=== PATIENT | male | born 1990 | race Hispanic/Latino ===

== ENCOUNTER 2023-03-25 14:34 | Emergency (ER) | payer OTHER, SELFPAY ==
[2023-03-25 14:57] VITALS: BP 122/70; PULSE 59; RESP 16; TEMP 36.3; O2SAT 99
[2023-03-25] MEDS: TETANUS,DIPHTHERIA,AC PERTUSSIS ADULT (0.5 ML) BOOSTRIX IM (15:16)
--- NOTE | 2023-03-25 15:19 | ED.WOUNDLAC ---
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 States the piece of metal fell off a hook and the corner of it struck him in the hand. He washed and took care of the wound at work, but was told by his mine supervisor to come here for a tetanus vaccine. Denies pain. Last tetanus shot was 10-15 years ago. Related Data Home Medications Medication Instructions Recorded Confirmed No Home Medications 03/25/23 03/25/23 Allergies Allergy/AdvReac Type Severity Reaction Status Date / Time No Known Allergies Allergy Verified 03/25/23 15:04 Review of Systems Review of Systems: CONSTITUTIONAL: Denies body aches, fever, chills, or sweats. EYES: Denies visual changes, redness, or discharge. ENT: Denies rhinorrhea, congestion, sore throat, or otalgia. CARDIOVASCULAR: Denies chest pain, palpitations, or edema. RESPIRATORY: Denies cough or dyspnea. GASTROINTESTINAL: Denies abdominal pain, nausea, vomiting, or diarrhea. GENITOURINARY: Denies dysuria or hematuria. SKIN: Denies rash, itching. + left hand laceration MUSCULOSKELETAL: Denies back pain, joint pain, or myalgia. NEUROLOGIC: Denies headache, numbness, tingling, or weakness. PSYCH: Denies depression or anxiety. PMFSH Comments At time of signature, I have reviewed and agree with nursing past medical, surgical, social and family history unless otherwise noted. Please see nursing chart for further information. There is no relevant family history pertinent to the presenting complaint Exam Narrative: GENERAL: Well-appearing, well-nourished, and in no acute distress. HEAD: Normocephalic, atraumatic. EYES: EOMI. No redness or drainage. Conjunctivae normal. ENT: Mucous membranes pink and moist. NECK: Normal AROM. CHEST: No respiratory distress. EXTREMITIES: Normal range of motion. No edema. SKIN: Warm, dry, no rash. Capillary refill normal. Normal skin turgor. 1.5 cm very superficial linear laceration to the palmar aspect of the left hand at the base of 3rd finger. No active bleeding. Distal sensation intact. Capillary refill normal. Full range of motion of all fingers. NEURO: No focal deficits. Alert and oriented x3. Gait steady. PSYCH: Normal affect. No signs of depression or anxiety. Course Course Level of Care: Express Care Visit Vital Signs Vital signs: Vital Signs Temperature 97.4 F L 03/25/23 14:57 Pulse Rate 59 L 03/25/23 14:57 Respiratory Rate 16 03/25/23 14:57 Blood Pressure 122/70 03/25/23 14:57 Pulse Oximetry 99 03/25/23 14:57 Oxygen Delivery Room Air 03/25/23 14:57 Temperature 97.4 F L 03/25/23 14:57 Pulse Rate 59 L 03/25/23 14:57 Respiratory Rate 16 03/25/23 14:57 Blood Pressure 122/70 03/25/23 14:57 Pulse Oximetry 99 03/25/23 14:57 Oxygen Delivery Room Air 03/25/23 14:57 Reviewed Procedures Laceration Laceration 1: Date: 03/25/23 Time: 15:19 Site: hand Side (If applicable): left Size (cm): 1.5 Description: linear Depth: simple, single layer Pre-repair: wound explored ====== Skin Level ====== Skin layer closed with: dermabond ====== Subcutaneous Layer ====== ====== Muscle Layer ====== ====== Tendon Layer ====== Dressing: Glue applied. MDM - Wound/Laceration MDM Narrative Medical decision making narrative: Glue applied to the laceration. Tetanus shot updated. No testing or prescription medications indicated at this time. Anticipatory guidance given. Differential Diagnosis Differential di
== END 2023-03-25 15:29 | disposition home or self-care (01) ==
PROVIDERS: Emergency Provider Nurse Practitioner
DX: S61.412A Laceration without foreign body of left hand, initial encounter (principal); W20.8XXA Other cause of strike by thrown, projected or falling object, initial encounter; Y99.0 Civilian activity done for income or pay; Z23 Encounter for immunization
CPT/HCPCS: 12001; 90471; 90715; 99212; G0463